=== PATIENT | female | born 1930 | race Caucasian/White ===

== ENCOUNTER 2019-07-15 18:09 | Emergency (ER) | payer MEDICARE ==
--- NOTE | 2019-07-15 23:27 | RADIOLOGY REPORT (SQ) ---
EXAM DESCRIPTION: XR TIBIA FIBULA 2 VIEWS COMPLETED DATE/TME: 07/15/2019 22:26 CLINICAL HISTORY: 89 years, Female, swelling COMPARISON: None. FINDINGS: 2 views of the left tibia and fibula. Osteopenia. No acute fracture. Atherosclerotic vascular calcification. Plantar calcaneal spur. Diffuse subcutaneous edema. IMPRESSION: 1. No acute fracture or dislocation. copyright 2010 [employer]- All Rights Reserved
--- NOTE | 2019-07-15 23:28 | RADIOLOGY REPORT (SQ) ---
EXAM DESCRIPTION: XR TIBIA FIBULA 2 VIEWS COMPLETED DATE/TME: 07/15/2019 22:26 CLINICAL HISTORY: 89 years, Female, swelling COMPARISON: None. FINDINGS: 2 views of the right tibia and fibula. Osteopenia. No acute fracture or dislocation. Diffuse subcutaneous soft tissue edema. Atherosclerotic vascular calcification. IMPRESSION: 1. No acute fracture or dislocation. copyright 2010 [employer]- All Rights Reserved
--- NOTE | 2019-07-15 23:28 | RADIOLOGY REPORT (SQ) ---
EXAM DESCRIPTION: XR CHEST 1 VIEW COMPLETED DATE/TME: 07/15/2019 22:25 CLINICAL HISTORY: leg edema COMPARISON: None. FINDINGS: Single frontal view of the chest. Cardiomediastinal silhouette: Atherosclerotic calcification tortuosity of thoracic aorta. Heart is not enlarged. Lungs: Linear left midlung opacities likely related to scarring or discoid atelectasis. No pneumothorax or large effusion. No confluent airspace consolidation. Bones: Degenerative change of the spine and shoulders. Upper abdomen: No abnormality identified. IMPRESSION: 1. No acute pneumonic process identified. Left midlung discoid atelectasis or scarring.
[2019-07-15 23:46] LABS: ABSOLUTE BASOPHILS # (AUTO) 0.1 10^3/uL (0.0-0.2); ABSOLUTE EOSINOPHILS # (AUTO) 0.1 10^3/uL (0.0-0.6); ABSOLUTE LYMPHOCYTES (AUTO) 1.7 10^3/uL (0.5-4.7); ABSOLUTE MONOCYTES (AUTO) 0.6 10^3/uL (0.1-1.4); ABSOLUTE NEUT (AUTO) 4.8 10^3/uL (1.7-8.2); BASOPHILS % (AUTO) 0.7 % (0-2); EOSINOPHILS % (AUTO) 1.5 % (0-6); HEMATOCRIT 39.1 % (36.0-47.0); HEMOGLOBIN 13.3 g/dL (12.0-15.5); LYMPHOCYTES % (AUTO) 23.5 % (13-45); MEAN CORPUSCULAR HEMOGLOBIN 31.2 pg (27.0-33.4); MEAN CORPUSCULAR HGB CONC 33.9 g/dL (32.0-36.0); MEAN CORPUSCULAR VOLUME 92 fl (80-97); MONOCYTES % (AUTO) 8.6 % (3-13); PLATELET COUNT 315 10^3/uL (150-450); RED BLOOD COUNT 4.25 10^6/uL (3.72-5.28); SEGMENTED NEUTROPHILS % (AUTO) 65.7 % (42-78); TOTAL CELLS COUNTED % (AUTO) 100 %; WHITE BLOOD COUNT 7.4 10^3/uL (4.0-10.5)
[2019-07-15 23:58] LABS: ALKALINE PHOSPHATASE 72 U/L (38-126); ANION GAP 8 (5-19); ASPARTATE AMINO TRANSFERASE 18 U/L (14-36); BILIRUBIN,DIRECT 0.3 mg/dL (0.0-0.4); BILIRUBIN,TOTAL 0.5 mg/dL (0.2-1.3); BLOOD UREA NITROGEN 10 mg/dL (7-20); CALCIUM 9.4 mg/dL (8.4-10.2); CARBON DIOXIDE 33 mmol/L (22-30); CHLORIDE 98 mmol/L (98-107); GLUCOSE 118 mg/dL (75-110); POTASSIUM 3.8 mmol/L (3.6-5.0); TOTAL PROTEIN 6.9 g/dL (6.3-8.2)
[2019-07-16 00:10] LABS: NT PRO BNP 2290 pg/mL (<450)
[2019-07-16 00:13] LABS: TROPONIN I < 0.012 ng/mL
[2019-07-16 00:31] VITALS: BP 209/99
[2019-07-16 00:45] LABS: D-DIMER 0.44 ug/mL (0.00-0.50); INTERNATIONAL RATION (INR) 0.98; PARTIAL THROMBOPLASTIN TIME 33.2 SEC (23.5-35.8)
[2019-07-16] MEDS ORDERED: CEPHALEXIN 500 MG CAPSULE PO ONE (00:52)
[2019-07-16] MEDS ORDERED: FUROSEMIDE 20 MG TABLET PO ONE (00:54)
--- NOTE | 2019-07-16 01:07 | ER Document Report ---
Entered by ANDREY CANCINO SCRIBE 07/15/19 [id number] Acting as scribe for:DELIO KING MD ED General - General Chief Complaint: Leg Swelling Stated Complaint: LEG SWELLING Time Seen by Provider: 07/15/19 21:57 Primary Care Provider: ISRAEL OSCAR MD [Primary Care Provider] - Follow up as needed Information source: Patient Notes: 89-year-old female presents to the emergency department with bilateral lower extremity swelling that began a "long time ago". Patient stated that her legs started out with slight redness and then her legs got significantly worse in swelling. Patient remarks that [place] has been checking her legs and just tells her that they "look bad". Patient reports overall discomfort. Patient denies fever and pain in legs. TRAVEL OUTSIDE OF THE [place] IN LAST 30 DAYS: No - Related Data Allergies/Adverse Reactions: No Known Allergies Allergy (Verified 07/15/19 18:28) Past Medical History - General Information source: Patient - Social History Smoking Status: Unknown if Ever Smoked Frequency of alcohol use: Rare Drug Abuse: None Family History: Reviewed & Not Pertinent Patient has suicidal ideation: No Patient has homicidal ideation: No - Past Medical History Cardiac Medical History: Reports: Hx Hypertension Psychiatric Medical History: Reports: Hx Dementia Surgical Hx: Negative Review of Systems - Review of Systems Constitutional: No symptoms reported EENT: No symptoms reported Cardiovascular: No symptoms reported Respiratory: No symptoms reported Gastrointestinal: No symptoms reported Genitourinary: No symptoms reported Female Genitourinary: No symptoms reported Musculoskeletal: See HPI, Leg swelling Skin: See HPI, Change in color Hematologic/Lymphatic: No symptoms reported Neurological/Psychological: No symptoms reported -: Yes All other systems reviewed and negative Physical Exam - Vital signs Vitals: Temp Pulse Resp BP Pulse Ox 98.1 F 88 18 228/105 H 98 07/15/19 18:25 07/15/19 18:25 07/15/19 18:25 07/15/19 18:25 07/15/19 18:25 - Notes Notes: Physical Exam: General: Alert, appears well. Able to ambulate. HEENT: Normocephalic. Atraumatic. PERRL. Extraocular movements intact. Oropharynx clear. Neck: Supple. Non-tender. Respiratory: No respiratory distress. Clear and equal breath sounds bilaterally. Cardiovascular: Regular rate and rhythm. Abdominal: Normal Inspection. Non-tender. No distension. Normal Bowel Sounds. Back: No gross abnormalities. Extremities: Moves all four extremities. Upper extremities: Normal inspection. Normal ROM. Lower extremities: Normal ROM. Erythema and edema. Mild tenderness to palpation; Left greater than Right. Blisters on left lower posterior leg. Neurological: Normal cognition. AAOx4. Normal speech. Psychological: Normal affect. Normal Mood. Skin: Warm. Dry. See note on lower extremity. Course - Re-evaluation Re-evalutation: 07/16/19 00:59 Patient ambulatory in the hallway not showing any signs of distress with her skillet walking. - Vital Signs Vital signs: Temp Pulse Resp BP Pulse Ox 98.0 F 73 17 209/99 H 96 07/16/19 00:29 07/16/19 00:29 07/16/19 00:29 07/16/19 00:29 07/16/19 00:29 - Laboratory Result Diagrams: 07/15/19 19:00 07/15/19 19:00 Laboratory results interpreted by me: 07/15/19 07/15/19 07/15/19 19:00 19:00 19:00 RDW 15.0 H Carbon Dioxide 33 H Glucose 118 H NT-Pro-B Natriuret Pep 2290 H - Diagnostic Test Radiology reviewed: Image reviewed, Reports reviewed Radiology results interpreted by me: 07/16/19 00:59 Bilateral tib-fib x-rays shows no acute bony injuries soft tissue swelling noted. No evidence of any gas gangrene. 07/16/19 00:59 Chest x-ray does not show any overt congestive heart failure no acute process no acute cardiopulmonary disease. Discharge - Discharge Clinical Impression: Bilateral edema of lower extremity, Cellulitis of both lower extremities, De mentia Condition: Stable Disposition: HOME, SELF-CARE Additional Instructions: Edema, Peripheral You have swelling in your legs. This is called peripheral edema. It can be caused by "leaky capillaries," inflammation, disease of the leg veins, or excess salt and water in your body. Edema may be a sign of heart, kidney, or liver disease. A medical evaluation can determine if there is a serious underlying cause for your edema. Avoid prolonged standing. If you must sit for a long time, occasionally get up and walk around or elevate your legs. Support stockings can be helpful in limiting swelling. Often diuretic or water pills are used to remove excess salt and water from your body. Call the doctor or return if you develop increased swelling, pain, or redness, shortness of breath, chest pain, or any other significant change. Cellulitis You have an infection of your skin and underlying soft tissues called cellulitis. This is due to bacteria, which can enter through any break in the skin, or even through an irritated hair follicle. Untreated, cellulitis will usually worsen. Antibiotics are required. Usually, warm packs or warm soaks, and elevation of the infected area are recommended. You should start getting better within 24 to 36 hours. Most infections respond quickly to the right medication. Follow-up care is important, however, to check for abscess (boil) formation, unsuspected foreign body, or resistant infection. If you develop fever, chills, or if the area of infection is becoming rapidly more swollen or painful, call the doctor at once. Daily dressing changes over blistered open wounds on left lower extremity. Prescriptions: Cephalexin Monohydrate [Keflex 500 mg Capsule] 500 mg PO QID 10 Days #40 capsule Furosemide [Lasix 20 mg Tablet] 20 mg PO QAM #30 tablet Referrals: ISRAEL OSCAR MD [Primary Care Provider] - Follow up as needed I personally performed the services described in the documentation, reviewed and edited the documentation which was dictated to the scribe in my presence, and it accurately records my words and actions.
== END 2019-07-16 02:00 | disposition home or self-care (01) ==
LOC: ER 18:09
DX: L03.116 Cellulitis of left lower limb (principal); L03.115 Cellulitis of right lower limb; R60.0 Localized edema; F03.90 Unspecified dementia, unspecified severity, without behavioral disturbance, psychotic disturbance, mood disturbance, and anxiety; I10 Essential (primary) hypertension
CPT/HCPCS: 36415; 87070; 87205; 85025; 85610; 85730; 80053; 84484; 85379; 83880; 71045; 73590 ×2; A9270 ×2; 87077; 99285

== ENCOUNTER 2020-05-23 18:49 | Emergency (ER) | payer MEDICARE, MEDICAID ==
[2020-05-23] MEDS ORDERED: METOPROLOL SUCCINATE 50 MG TAB.SR.24H PO ONE (20:26)
[2020-05-23] MEDS ORDERED: LISINOPRIL 10 MG TABLET PO ONE (20:28)
[2020-05-23] MEDS ORDERED: ACETAMINOPHEN 325 MG TABLET PO ONE (20:28)
--- NOTE | 2020-05-23 20:37 | ER Document Report ---
ED Blood Pressure Problem - General Chief Complaint: Headache Stated Complaint: HIGH BLOOD PRESSURE Time Seen by Provider: 05/23/20 20:10 Primary Care Provider: ISRAEL OCSAR MD [Primary Care Provider] - Follow up in 3-5 days TRAVEL OUTSIDE OF THE [place] IN LAST 30 DAYS: No - HPI Notes: Patient is a 89-year-old female with a past medical history of dementia and high blood pressure who presents with a blood pressure problem. Patient is from [facility]. She does have dementia and is a poor historian. She is unable to tell me why she is at the hospital. She does know she is at the hospital and what year it is. Patient states that she does have a headache when prompted. [facility] called the [facility] and spoke with her nurse. She stated that patient said she felt faint today. They took her blood pressure and it was high. They called the [facility] doctor and the doctor said to take her to the ER. Patient has not received her evening medicines which includes 2 blood pressure medicines of metoprolol and lisinopril. Patient is alert and oriented. She is in no acute distress. She is resting comfortably. Review of systems and history is limited due to her underlying dementia. - Related Data Allergies/Adverse Reactions: No Known Allergies Allergy (Verified 07/15/19 18:28) Home Medications: Lisinopril 20mg BID. Metoprolol ER 100mg BID. Donepazil HCL 10mg QHS Past Medical History - General Information source: Patient, Emergency Med Personnel, Outside Facility Records - Social History Smoking Status: Unknown if Ever Smoked Chew tobacco use (# tins/day): No Frequency of alcohol use: None Drug Abuse: None Family History: Reviewed & Not Pertinent Patient has homicidal ideation: No - Past Medical History Cardiac Medical History: Reports: Hx Hypertension Psychiatric Medical History: Reports: Hx Dementia Review of Systems - Review of Systems Notes: CONSTITUTIONAL: No fever EYES: No recent vision problems or eye pain. CARDIOVASCULAR: No chest pain RESPIRATORY: No cough, shortness of breath, congestion, or wheezing. GASTROINTESTINAL: No abdominal pain NEUROLOGIC: Positive for headache. PSYCHIATRIC: Positive for dementia. -: Yes ROS unobtainable due to patient's medical condition Physical Exam - Vital signs Vitals: Temp Pulse Resp BP Pulse Ox 98.1 F 97 18 225/100 H 97 05/23/20 19:12 05/23/20 19:12 05/23/20 19:12 05/23/20 19:12 05/23/20 19:12 - General General appearance: Appears well In distress: None Notes: VITAL SIGNS: Hypertensive GENERAL: No acute distress, non-toxic appearance. HEAD: Normal with no signs of head trauma. EYES: EOMI, conjunctiva normal, no discharge. EARS: Hearing grossly intact. NOSE: Normal. NECK: Normal range of motion, no tenderness, supple, no lymphadenopathy, No adenopathy, no JVD. CHEST: Clear breath sounds bilaterally. No wheezes, rales, or rhonchi. CARDIAC: Regular rate and rhythm. S1 and S2, without murmurs, gallops, or rubs. ABDOMEN: Normal and soft with no tenderness GENITOURINARY: Normal, No tenderness MUSCULOSKELETAL: Good range of motion of all major joints. Extremities without clubbing, cyanosis or edema. NEUROLOGICAL: Alert and oriented x 3. No focal sensory or strength deficits. Speech normal. Follows commands appropriately. PSYCHIATRIC: Normal Affect, judgement and mood. Course - Re-evaluation Re-evalutation: 05/23/20 20:37 Patient's initial blood pressure was 225 systolic. Upon my evaluation, her blood pressure has improved to 178 systolic without treatment. I discussed with the [facility] and they stated that she had not received any of her evening meds. I will give her the scheduled blood pressure medication based on her [facility] records. I will also obtain blood work. Patient will be observed. She is in no acute distress and is resting comfortably. 05/24/20 00:33 Patient's lab work is unremarkable. Her cardiac work-up is nonacute. Patient's head CT is unremarkable. On reassessment, patient's blood pressure is now 145 systolic after medication. She is ambulating to the bathroom. Patient states that she feels better and would like to go home. I did write a note to the [facility] that she has some blood in her urine and that this should be rechecked. Patient was given strict return precautions. - Vital Signs Vital signs: Temp Pulse Resp BP Pulse Ox 98.1 F 97 14 145/86 H 95 05/24/20 00:00 05/23/20 19:12 05/23/20 23:56 05/23/20 23:56 12/28/20 23:56 - Laboratory Results Result Diagrams: 05/23/20 20:18 05/23/20 20:18 Laboratory Results Interpreted: 05/23/20 05/23/20 05/23/20 20:18 20:18 20:18 WBC 11.8 H Lymph % (Auto) 5.2 L Absolute Neuts (auto) 10.6 H Seg Neutrophils % 90.4 H Sodium 135.1 L Chloride 97 L Carbon Dioxide 31 H Glucose 120 H Urine Blood SMALL H Critical Laboratory Results Reviewed: No Critical Results - Radiology Results Critical Radiology Results Reviewed: No Critical Results - EKG Interpretation by Me EKG shows normal: Sinus rhythm Rate: Normal Laura/QRS: RBBB When compared to previous EKG there are: Previous EKG unavailable Additional EKG results interpreted by me: 05/23/20 20:38 Sinus rhythm at a rate of 97. QTc 524. Right bundle branch block. No previous EKG available for comparison. Discharge - Discharge Clinical Impression: Hypertension Qualifiers: Hypertension type: unspecified Qualified Code(s): I10 - Essential (primary) hyp ertension Headache Qualifiers: Headache type: unspecified Headache chronicity pattern: acute headache Intracta bility: not intractable Qualified Code(s): R51.9 - Headache, unspecified Condition: Stable Disposition: HOME, SELF-CARE Instructions: Headache ([facility]), High Blood Pressure ([facility]) Additional Instructions: Your work-up today is reassuring. Your urinalysis did show a small amount of blood in your urine. Please have this rechecked with the doctor. Your blood pressure has normalized after you were given your metoprolol and lisinopril for your 8 PM scheduled dose. Please return to the ER for any return of symptoms. Referrals: ISRAEL OSCAR MD [Primary Care Provider] - Follow up in 3-5 days
[2020-05-23 20:46] LABS: ABSOLUTE BASOPHILS # (AUTO) 0.1 10^3/uL (0.0-0.2); ABSOLUTE LYMPHOCYTES (AUTO) 0.6 10^3/uL (0.5-4.7); ABSOLUTE MONOCYTES (AUTO) 0.4 10^3/uL (0.1-1.4); ABSOLUTE NEUT (AUTO) 10.6 10^3/uL (1.7-8.2); BASOPHILS % (AUTO) 0.6 % (0-2); EOSINOPHILS % (AUTO) 0.2 % (0-6); HEMATOCRIT 39.5 % (36.0-47.0); HEMOGLOBIN 13.8 g/dL (12.0-15.5); LYMPHOCYTES % (AUTO) 5.2 % (13-45); MEAN CORPUSCULAR HEMOGLOBIN 31.9 pg (27.0-33.4); MEAN CORPUSCULAR HGB CONC 35.1 g/dL (32.0-36.0); MEAN CORPUSCULAR VOLUME 91 fl (80-97); MONOCYTES % (AUTO) 3.6 % (3-13); PLATELET COUNT 196 10^3/uL (150-450); RED BLOOD COUNT 4.34 10^6/uL (3.72-5.28); RED CELL DISTRIBUTION WIDTH 12.7 % (11.5-14.0); SEGMENTED NEUTROPHILS % (AUTO) 90.4 % (42-78); TOTAL CELLS COUNTED % (AUTO) 100 %; WHITE BLOOD COUNT 11.8 10^3/uL (4.0-10.5)
[2020-05-23 21:06] LABS: ALBUMIN 4.2 g/dL (3.5-5.0); ALKALINE PHOSPHATASE 61 U/L (38-126); ANION GAP 7 (5-19); ASPARTATE AMINO TRANSFERASE 19 U/L (14-36); BILIRUBIN,TOTAL 1.1 mg/dL (0.2-1.3); BLOOD UREA NITROGEN 12 mg/dL (7-20); CALCIUM 9.2 mg/dL (8.4-10.2); CARBON DIOXIDE 31 mmol/L (22-30); CHLORIDE 97 mmol/L (98-107); GLUCOSE 120 mg/dL (75-110); POTASSIUM 3.8 mmol/L (3.6-5.0); TOTAL PROTEIN 6.9 g/dL (6.3-8.2)
--- NOTE | 2020-05-23 21:53 | RADIOLOGY REPORT (SQ) ---
EXAM DESCRIPTION: CHEST SINGLE VIEW 05/23/2020 8:23 PM [facility] CLINICAL HISTORY: 89 years Female, hypertension; ; COMPARISON: Prior study from 07/15/2019 FINDINGS: Single view is obtained. Cardiac and mediastinal contours are stable. Bandlike opacity about the left midlung zone is unchanged from 07/15/2019, likely indicating an area of chronic scar. Lungs are otherwise clear. No pleural effusion or pneumothorax. IMPRESSION: No acute disease.
--- NOTE | 2020-05-23 22:49 | RADIOLOGY REPORT (SQ) ---
EXAM DESCRIPTION: CT HEAD WITHOUT IV CONTRAST COMPLETED DATE/TME: 05/23/2020 22:22 CLINICAL HISTORY: 89 years, Female, headache, hypertension COMPARISON: None. TECHNIQUE: Axial images without IV contrast. Sagittal coronal reconstruction. Images stored on PACS. All CT scanners at this facility use dose modulation, iterative reconstruction, and/or weight based dosing when appropriate to reduce radiation dose to as low as reasonably achievable (ALARA). FINDINGS: Moderate central and cortical atrophy. No acute intra-axial or extra-axial abnormality. Inflammatory changes including fluid level in right maxillary sinus. Mastoid air cells and bony calvarium are unremarkable. IMPRESSION: 1. No acute intracranial abnormalities. 2. The fluid level in the right maxillary sinus.
[2020-05-23 23:04] LABS: APPEARANCE,URINE CLEAR; BILIRUBIN,URINE NEGATIVE (NEGATIVE); COLOR,URINE STRAW; GLUCOSE, URINE NEGATIVE (NEGATIVE); KETONES,URINE NEGATIVE (NEGATIVE); LEUKOCYTE ESTERASE,URINE NEGATIVE (NEGATIVE); NITRITE,URINE NEGATIVE (NEGATIVE); PROTEIN,URINE NEGATIVE (NEGATIVE); URINE SPECIFIC GRAVITY 1.013; UROBILINOGEN,URINE NEGATIVE mg/dL (<2.0)
[2020-05-24 00:02] VITALS: BP 145/86
--- NOTE | 2020-05-24 09:06 | EKG REPORT ---
SEVERITY:- ABNORMAL ECG - SINUS RHYTHM BIATRIAL ABNORMALITIES RIGHT BUNDLE BRANCH BLOCK : Confirmed by: Raz Faith MD 24-May-2020 09:05:35
== END 2020-05-24 00:12 | disposition home or self-care (01) ==
LOC: ER 18:49
DX: R51.9 Headache, unspecified (principal); I10 Essential (primary) hypertension; F03.90 Unspecified dementia, unspecified severity, without behavioral disturbance, psychotic disturbance, mood disturbance, and anxiety; I45.10 Unspecified right bundle-branch block
CPT/HCPCS: 93005; 99285; 36415; 85025; 80053; 81001; 84484; 71045; 70450; 93010; A9270 ×3